=== PATIENT | male | born 1950 | race Caucasian/White ===

== ENCOUNTER → 2017-02-01 | Outpatient (CLI) | payer MEDICARE ==
--- NOTE | 2017-02-01 11:56 | DI ---
INDICATION: ITS.REASON: R06.2 WHEEZING, R06.02 SOB PROCEDURE: CHEST 2-VIEWS UPRIGHT (PA \T\ LAT) Encounter: Initial COMPARISON: June 05, 2016 FINDINGS: Hyperinflation consistent with COPD. Lungs are stable without new focal abnormal airspace opacity. There is no pleural effusion or pneumothorax. There is some chronic flattening of the hemidiaphragms and blunting of the posterior costophrenic angles probably due to pleural thickening or scar. The heart size, mediastinal contours and pulmonary vascularity are unchanged. IMPRESSION: Stable chest without acute cardiopulmonary disease. .
== END ==
LOC: IMA 10:44
PROVIDERS: ATTEND Registered Nurse
DX: R06.02 Shortness of breath (principal); R06.2 Wheezing